=== PATIENT | female | born 1975 | race Two or more races ===

== ENCOUNTER 2019-08-06 12:56 | Emergency (ER) | payer MEDICAID ==
[~2019-08-06] VITALS: Ht 162.6 cm; Wt 101.6 kg
[2019-08-06 13:33] VITALS: BP 122/70
== END 2019-08-06 15:06 | disposition left against medical advice (07) ==
LOC: ER 13:12
DX: M25.521 Pain in right elbow (principal); Z53.21 Procedure and treatment not carried out due to patient leaving prior to being seen by health care provider